=== PATIENT | male | born 1945 | race Caucasian/White ===

== ENCOUNTER 2017-03-10 06:19 | Day surgery (SDC) | payer BC ==
[2017-03-06 10:14] LABS: BASOPHILS 0.3 %; BASOPHILS ABSOLUTE 0.02 10/3/uL (0.0-0.16); EOSINOPHILS 1.9 %; EOSINOPHILS ABSOLUTE 0.11 10/3/uL (0.0-0.53); HEMATOCRIT 39.1 % (40.0-51.0); HEMOGLOBIN 12.4 g/dL (13.6-17.8); IMMATURE GRANULOCYTES 0.2 %; IMMATURE GRANULOCYTES ABSOLUTE 0.01 10/3/uL (0.0-0.11); LYMPHOCYTES 16.3 %; LYMPHOCYTES ABSOLUTE 0.93 10/3/uL (0.67-4.30); MEAN CORPUS HGB CONC 31.7 g/dL (32.0-36.0); MEAN CORPUSCULAR HEMOGLOB 30.1 pg (26.0-34.0); MEAN PLATELET VOLUME 9.3 fL (9.2-13.0); MONOCYTES 9.6 %; MONOCYTES ABSOLUTE 0.55 10/3/uL (0.21-1.20); NEUTROPHILS 71.7 %; RBC DISTRIBUTION WIDTH 16.3 % (12.0-16.0); RED CELL COUNT 4.12 10/6/uL (4.7-6.1)
[2017-03-06 10:16] LABS: MANUAL DIFF NO %; MEAN CORPUSCULAR VOLUME 94.9 fL (80-100); PLATELET COUNT 189 10/3/uL (150-400); WHITE BLOOD CELLS 5.7 10/3/uL (4.5-10.5)
[2017-03-06 10:17] LABS: ASCORBIC ACID (UR NOT ORDER) 20 (NEG); BILIRUBIN, URINE NEGATIVE (NEG); KETONE, URINE NEGATIVE (NEG); LEUKOCYTE ESTERASE(NOT OR NEG (NEG); WBC (NOT ORDERED) (RFLEX) 1 (0-5)
[2017-03-06 10:20] LABS: INTERNATIONAL NORMAL RATI 1.1 UNITS (-); PARTIAL THROMBO TIME 26.7 SEC (22.5-37.2); PROTIME (NOT ORD) 14.3 SEC (12.0-14.5)
[2017-03-06 10:29] LABS: BUN (BLOOD UREA NITROGEN) 13 MG/DL (6-23); CALCIUM, SERUM 9.1 MG/DL (8.5-10.4); CHLORIDE, SERUM 109 MMOL/L (96-112); CO2 (CARBON DIOXIDE) 29 MMOL/L (24-34); CREATININE 0.97 MG/DL (0.70-1.30); GFR AFRICAN AMERICAN 90 ML/MIN (>=60); GFR NON AFRICAN AMERICAN 78 ML/MIN (>=60); GLUCOSE, SERUM 84 MG/DL (60-99); SODIUM, SERUM 145 MMOL/L (135-148)
--- NOTE | ~2017-03-10 | OP ---
Record Of Operation [facility] [address] [place]. [address] NAME: GEOVANNY CHURCHILL : 45 STATUS : REG [facility] PAT#: [id number] AGE: 72 ADM/REG DATE : 03/10/17 MR#: [id number] REPORT SERV DATE: 03/10/17 DICTATED BY: JANN JAY DATE: 03/10/17 REPORT STATUS : Draft TRANSCRIBED BY: MODL DATE: 03/10/17 DATE OF PROCEDURE: 03/10/2017 PREOPERATIVE DIAGNOSIS: Benign prostatic hyperplasia with obstruction. POSTOPERATIVE DIAGNOSIS: Benign prostatic hyperplasia with obstruction. OTHER DIAGNOSIS: Personal history of transitional carcinoma of the bladder. PROCEDURE: Cystoscopy, GreenLight laser vaporization of the prostate. ANESTHESIA: General endotracheal. BLOOD LOSS: Less than 5 mL. FLUID REPLACEMENT: Unknown. DRAINS: A 20-Surinamese Jay catheter with 10 mL of sterile water inflated in the catheter balloon. INDICATIONS: A 72-year-old male with symptomatic BPH. He has a history of TCC of the bladder. TECHNIQUE: The patient was identified and brought to the operating room, administered general anesthetic agent by the Anesthesia Service and intubated. He was positioned in dorsal lithotomy position. Penis, groin, scrotum, and perineum were prepped and draped in the usual sterile fashion. A 22-Surinamese cystoscopic sheath with 30-degree lens was used for cystourethroscopy. The fossa navicularis is somewhat stenotic, so I used Jaime sounds and dilated the entire urethra to 28-Surinamese. I then easily passed a 22-Surinamese cystoscope into the urethra. The urethra was normal. The prostatic urethra shows hypertrophy of the lateral lobes and a steep median ramp. The bladder was entered and surveyed. Resection scar was noted on the right lateral wall posterior to the right ureteral orifice. The remainder of the bladder surveyed with 30 and 70-degree lens. No urothelial lesions were noted. The bladder was left full. Cystoscope was removed. I placed a 24-Surinamese continuous-flow laser sheath into the bladder with the visual utility operator. I then inserted the laser bridge and a holmium and a GreenLight XPS fiber. I started at 100 john power and cut a groove of the prostate from the bladder neck back to the verumontanum at the 5 o'clock and at the 7 o'clock position. I then ablated the lateral lobes at 150 john power. I then turned the wattage back down to 100 john power and ablated some anteriorly in the floor of the prostate. No ablation was done distal to the verumontanum. The bladder was irrigated free of all debris with Ellik evacuators. I removed the sheath and placed a 20-Surinamese Jay catheter into the bladder. 10 mL of sterile water was placed into the balloon. I then irrigated the bladder clear with saline. The catheter was then left to drainage. The patient was awakened and taken to the recovery unit in stable and satisfactory condition. Record Of Operation [facility] [address] [facility] [address] [place]. [address] NAME: GEOVANNY CUHRCHILL : 45 STATUS : REG [facility]#: [id number] AGE: 72 ADM/REG DATE : 03/10/17 MR#: [id number] REPORT SERV DATE: 03/10/17 DICTATED BY: JANN JAY DATE: 03/10/17 REPORT STATUS : Draft TRANSCRIBED BY: JOSIAS DATE: 03/10/17 PF/JOSIAS Jann Jay M.D. / [id number] CC: Josh León M.D.
[~2017-03-10 06:19] MED LIST: ASAB PO; COREG6 PO; COZ25 PO; FISH OIL1200 MG PO; FISH-EPA1000 MG PO; IMDUR30 PO; IMDUR60 PO; LEVOTHYROXIN25 MCG PO; LEVOTHYROXIN50 MCG PO; LEXAPRO10 PO; LOVENOX80 SC; NAP500 PO; NEXIUM40 PO; NITROSTAT0.4 MG SL; NORCO1 TA1 PO; PROSTATE MED; VIT B 12 PO; VITAMIN B-121000 MC1 SL; ZOCOR40 PO; [UNRECOGNIZED DRUG - CODE] SL; [UNRECOGNIZED DRUG - OTHER] PO
[2017-06-15] MEDS ORDERED: COREG25 PO (14:38)
[2017-06-15] MEDS ORDERED: NEXIUM40 PO (14:47)
== END 2017-03-10 16:17 | disposition home or self-care (01) ==
LOC: SDC 06:19
PROVIDERS: Urology
PROC: 0V508ZZ Destruction of Prostate, Via Natural or Artificial Opening Endoscopic (ICD-10-PCS; principal; 2017-03-10 07:45)
DX: N40.1 Benign prostatic hyperplasia with lower urinary tract symptoms (principal); N13.8 Other obstructive and reflux uropathy; I25.10 Atherosclerotic heart disease of native coronary artery without angina pectoris; I10 Essential (primary) hypertension; E03.9 Hypothyroidism, unspecified; Z88.5 Allergy status to narcotic agent; Z79.899 Other long term (current) drug therapy; Z98.890 Other specified postprocedural states; Z98.41 Cataract extraction status, right eye; Z98.42 Cataract extraction status, left eye
CPT/HCPCS: 80048; 81001; 85025; 85610; 85730; 93005; A9270-GY; J2250; J2370; J2405; J2710; J3010